=== PATIENT | female | born 1965 | race African-American/Black ===

== ENCOUNTER 2023-11-02 17:05 | Emergency (ER) | payer MEDICAID ==
[~2023-11-02] VITALS: Ht 152.4 cm; Wt 72.7 kg
[2023-11-02] MEDS ORDERED: DexAMETHasone 4 MG TAB PO ONE (19:30)
[2023-11-02] MEDS ORDERED: cefTRIAXone SOD 1,000 MG VL IM ONE (19:30)
[2023-11-02] MEDS ORDERED: diphenhdrAMINE HCL 25 MG CAP PO ONE (19:30)
[2023-11-02] MEDS ORDERED: CLIN300C70 PO (19:32)
[2023-11-02 19:53] VITALS: BP 141/86; PULSE 86; RESP 18; TEMP 98.8; O2SAT 99
== END 2023-11-02 20:00 | disposition home or self-care (01) ==
LOC: ER 17:05
DX: S60.561A Insect bite (nonvenomous) of right hand, initial encounter (principal); S90.561A Insect bite (nonvenomous), right ankle, initial encounter; L03.113 Cellulitis of right upper limb; W57.XXXA Bitten or stung by nonvenomous insect and other nonvenomous arthropods, initial encounter; Y93.89 Activity, other specified; Y92.89 Other specified places as the place of occurrence of the external cause; Y99.8 Other external cause status
CPT/HCPCS: 96372; 99283; J0696; J8540